=== PATIENT | male | born 1945 | race Caucasian/White ===

== ENCOUNTER 2016-10-27 08:29 | Day surgery (SDC) | payer MEDICARE ==
[~2016-10-27 08:29] MED LIST: ACETAMINOPHEN 1000MG/100 ML PREMIX IV ONE; CEFAZOLIN 1 Gram 50 ML IVPB ONE; FAMOTIDINE 20MG TABLET PO ONE; MECLIZINE 25 MG TABLET PO ONE; METOCLOPRAMIDE 10 MG TABLET PO ONE
[2016-10-27] MEDS ORDERED: OXYCODONE HCL/APAP 5MG/325MG TABLET PO ONE (14:07)
[2016-10-27] MEDS ORDERED: BUPIVACAINE 0.25% W/EPI MPF 30ML VIAL IVP ONE (14:07)
--- NOTE | 2016-10-27 14:23 | Operative Note ---
OPERATIVE REPORT DATE OF PROCEDURE: 10/27/2016. SURGEON: Michael Nichols D.O. REFERRING PHYSICIAN: Kenyon Shultz D.O. PREOPERATIVE DIAGNOSIS: REDUCIBLE RIGHT INGUINAL HERNIA. POSTOPERATIVE DIAGNOSIS: REDUCIBLE RIGHT INGUINAL HERNIA. PROCEDURE: Open right inguinal herniorrhaphy with mesh. INDICATIONS: The patient is a 71-year-old male who presented to the clinic with pain and bulging in his right inguinal region. He clearly had a reducible hernia on examination. We did discuss repair and the risks, benefits, and alternatives. The risks include bleeding, infection, acute and chronic pain, and recurrence. He understood this fully. Therefore consent was signed and questions were answered. DESCRIPTION OF PROCEDURE: He was taken to the operating room and was placed in the supine position. General anesthesia was administered per the Department of Anesthesia. The patient's right inguinal region was shaved of hair and prepped and draped in the usual fashion. At this time an oblique region was anesthetized with a total of 5.0 mL of 0.25% Sensorcaine with epinephrine. A 4.0 cm oblique incision was made. This was carried down through subcutaneous tissue through Brandy's layer to the aponeurosis of the external oblique. This was cleaned off. A angel was made with the scalpel blade and this was enlarged through the superficial inguinal ring with Metzenbaum scissors. Care was taken not to injure the underlying ilioinguinal nerve or spermatic cord. At this time superior and inferior flaps were developed and a [place] was placed on the spermatic cord. This was dissected free from the underlying transversalis fascia. The patient did have an attenuated floor and incarcerated fat at the level of the pubic tubercle through the floor. The cremasteric fibers were taken down. A small indirect hernia sac was also identified. High ligation of the indirect sac was noted. At this time the hernia sac just lateral to the pubic tubercle was amputated. The floor was imbricated with 2-0 Vicryl from the level of the pubic tubercle to the deep inguinal ring. At this time a right-sided ProGrip mesh was obtained. This was placed on the floor of the inguinal canal with excellent overlap of the pubic tubercle. Sutures went to the level of the pubic tubercle shelving portion of the inguinal ligament and the internal oblique aponeurosis. The mesh had been notched and did accompany the deep inguinal ring. The lateral triangle was protected with the lateral aspect of the mesh. At this time the aponeurosis was closed with a cord of 2-0 Vicryl, Brandy's layer was closed with 3-0 Vicryl, and the skin was closed with 4-0 Vicryl. He was taken to the recovery room in satisfactory condition. FINDINGS AT THE TIME OF SURGERY: [place] hernia where a small indirect hernia sac was noted as well as incarcerated fat just lateral to the pubic tubercle. Michael Nichols D.O. Date Time JOB NUMBER: [id number] cc: Grace Pathak
[2016-10-27] MEDS ORDERED: ONDANSETRON HCL IV 4 MG/2 ML VIAL IVP ONE (15:29)
[2016-10-27] MEDS ORDERED: LIDOCAINE 2% MDV (20MG/ML) 20ML VIAL IV ONE (15:29)
[2016-10-27] MEDS ORDERED: FENTANYL PF 100MCG/2ML VIAL IV ONE (15:29)
[2016-10-27] MEDS ORDERED: PROPOFOL 10 MG/ML VIAL IV ONE (15:29)
[2016-10-27] MEDS ORDERED: HYDRALAZINE 20MG/ML VIAL IV ONE (15:29)
[2016-10-27] MEDS ORDERED: MIDAZOLAM HCL 2MG/2ML VIAL IV ONE (15:29)
[2016-10-27] MEDS ORDERED: DEXAMETHASONE 4 MG/ML 1ML VIAL IVP ONE (15:29)
== END 2016-10-27 12:15 | disposition home or self-care (01) ==
LOC: SUR 08:29
PROVIDERS: ATTEND Surgery
DX: K40.90 Unilateral inguinal hernia, without obstruction or gangrene, not specified as recurrent (principal); I10 Essential (primary) hypertension; E78.00 Pure hypercholesterolemia, unspecified
CPT/HCPCS: 49505; 00830; J2405; J3010; J0690

== ENCOUNTER 2016-11-18 11:56 | Inpatient (IN) | payer MEDICARE ==
[2016-11-18 13:01] LABS: ANION GAP 8.7 (7-16); CARBON DIOXIDE 31.3 mmol/L (22-30); CREATININE 1.3 mg/dL (0.66-1.25)
--- NOTE | 2016-11-18 13:20 | Emergency Department Record ---
History of Present Illness - General Chief complaint: Pain Stated complaint: HIP PAIN Time Seen by Provider: 11/18/16 12:20 Source: Patient Mode of Arrival: Ambulatory Limitations: No limitations - History of Present Illness Initial comments: pt sent here for abnormal calcium. pt recently had pathological fx of hip by just stepping off a curb. dr england ordered labs and found abnormal calcium. pt also has had a marked wt loss. he recently stopped smoking MD Complaint: Extremity pain Onset/Timin -: Days(s) Location: Left, Other History of Same: No Severity scale (1-10): 1 Quality: Aching Improves with: Nothing Worsens with: Nothing Associated Symptoms: Denies other symptoms - Related Data Home Medications Medication Instructions Recorded Confirmed Last Taken Aclidinium [place] [Tudorza 400 mcg IH DAILY 11/18/16 11/18/16 Unknown Pressair] Amlodipine Besylate [Norvasc] 10 mg PO DAILY 11/18/16 11/18/16 Unknown Aspirin [Ecotrin] 81 mg PO DAILY 11/18/16 11/18/16 Unknown Atenolol [Tenormin] 50 mg PO DAILY 11/18/16 11/18/16 Unknown Atorvastatin Calcium [Lipitor] 10 mg PO DAILY 11/18/16 11/18/16 Unknown Cholecalciferol (Vitamin D3) 1,000 unit PO DAILY 11/18/16 11/18/16 Unknown [Vitamin D3] Dexlansoprazole [Dexilant] 60 mg PO DAILY 11/18/16 11/18/16 Unknown Fluticasone Propionate [Flonase] 2 spray EACH NARES DAILY 11/18/16 11/18/16 Unknown Loratadine 10 mg PO DAILY 11/18/16 11/18/16 Unknown Multivit-Min/FA/Lycopene/Lut 1 each PO DAILY 11/18/16 11/18/16 Unknown [Centrum Silver Tablet] Nitroglycerin 0.4 mg SL ASDIR 11/18/16 11/18/16 Unknown Oxycodone HCl/Acetaminophen 1 tab PO Q6H PRN 11/18/16 11/18/16 Unknown [Percocet 10mg/325mg] Saliva Substitution Combo No.9 473 ml MM DAILY 11/18/16 11/18/16 Unknown [Biotene] Tramadol HCl 50 mg PO Q6H 11/18/16 11/18/16 Unknown Trazodone HCl [Desyrel] 50 mg PO QHS 11/18/16 11/18/16 Unknown Allergies Allergy/AdvReac Type Severity Reaction Status Date / Time codeine Allergy Unknown HYPERSENSIT Unverified 07/28/14 18:14 IVITY Travel Screening - Travel/Exposure Within Last 30 Days Have you traveled within the last 30 days?: No Review of Systems Reviewed: No additional complaints except as noted below Constitutional: Reports: As per HPI. Denies: Chills, Fever, Malaise, Night sweats, Weakness, Weight change Eyes: Reports: As per HPI. Denies: Eye discharge, Eye pain, Photophobia, Vision change ENT: Reports: As per HPI. Denies: Congestion, Dental pain, Ear pain, Epistaxis , Hearing loss, Throat pain Respiratory: Reports: As per HPI. Denies: Cough, Dyspnea, Hemoptysis, Stridor, Wheezes Cardiovascular: Reports: As per HPI. Denies: Arrhythmia, Chest pain, Dyspnea on exertion, Edema, Murmurs, Orthopnea, Palpitations, Paroxysmal nocturnal dyspnea, Rheumatic Fever, Syncope Endocrine: Reports: As per HPI. Denies: Fatigue, Heat or cold intolerance, Polydipsia, Polyuria Gastrointestinal: Reports: As per HPI. Denies: Abdominal pain, Constipation, Diarrhea, Hematemesis, Hematochezia, Melena, Nausea, Vomiting Genitourinary: Reports: As per HPI. Denies: Dysuria, Frequency, Hematuria, Incontinence, Retention, Testicular pain, Testicular mass, Urgency Musculoskeletal: Reports: As per HPI. Denies: Arthralgia, Back pain, Gout, Joint swelling, Myalgia, Neck pain Skin: Reports: As per HPI. Denies: Bruising, Change in color, Change in hair/ nails, Lesions, Pruritus, Rash Neurological: Reports: As per HPI. Denies: Abnormal gait, Confusion, Headache, Numbness, Paresthesias, Seizure, Tingling, Tremors, Vertigo, Weakness Psychiatric: Reports: As per HPI. Denies: Anxiety, Auditory hallucinations, Depression, Homicidal thoughts, Suicidal thoughts, Visual hallucinations Hematological/Lymphatic: Reports: As per HPI. Denies: Anemia, Blood Clots, Easy bleeding, Easy bruising, Swollen glands Past Medical History - SOCIAL HISTORY Smoking Status: Former smoker Alcohol Use: None Drug Use: None - RESPIRATORY Hx Respiratory Disorders: No - CARDIOVASCULAR Hx Cardio Disorders: Yes Hx Cardiac Cath: Yes Hx Heart Attack: Yes Hx Hypertension: Yes Hx Vascular Disease: Yes Hx Coronary Stent: Yes (years ago) Comment:: aortic aneurysm repair. 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) Hx Weakness: Yes (generalized) - GI Hx GI Disorders: Yes Hx Abdominal Pain: Yes Hx Liver Disease: Yes (fatty liver disease) Hx Wt Loss/Wt Gain: Yes (losing weight unknown etiology) - Hx Genitourinary Disorders: Yes Hx Bladder Problem: Yes (frequent) - ENDOCRINE Hx Endocrine Disorders: No - MUSCULOSKELETAL Hx Musculoskeletal Disorders: Yes Hx Arthritis: Yes Hx Back Injury: Yes - PSYCH Hx Psych Problems: No - HEMATOLOGY/ONCOLOGY Hx Hematology/Oncology Disorders: No Hx Blood Transfusions: No Family Medical History Any Significant Family History?: Yes Hx Heart Disease: Father Physical Exam - General General Appearance: Alert, Oriented x3, Cooperative, Mild distress, Other ( cachectic) - Head Head exam: Normal inspection - Eye Eye exam: Normal appearance, PERRL, EOMI Pupils: Normal accommodation - ENT ENT exam: Normal exam, Mucous membranes moist, Normal external ear exam, Normal orophraynx Ear exam: Normal external inspection. negative: External canal tenderness Nasal Exam: Normal inspection. negative: Discharge, Sinus tenderness Mouth exam: Normal external inspection, Tongue normal Teeth exam: Normal inspection. negative: Dental caries Throat exam: Normal inspection. negative: Tonsillar erythema, Tonsillar exudate - Neck Neck exam: Normal inspection, Full ROM. negative: Tenderness - Respiratory Respiratory exam: Normal lung sounds bilaterally. negative: Respiratory distress - Cardiovascular Cardiovascular Exam: Regular rate, Normal rhythm, Normal heart sounds - GI/Abdominal GI/Abdominal exam: Soft, Normal bowel sounds. negative: Tenderness - Rectal Rectal exam: Deferred - exam: Deferred - Extremities Extremities exam: Normal capillary refill, Tenderness. negative: Normal inspection, Full ROM - Back Back exam: Reports: Normal inspection, Full ROM. Denies: Muscle spasm, Rash noted, Tenderness - Neurological Neurological exam: Alert, CN II-XII intact, Normal gait, Oriented X3 - Psychiatric Psychiatric exam: Normal affect, Normal mood - Skin Skin exam: Dry, Intact, Normal color, Warm Course Vital Signs 11/18/16 12:05 Temperature 97.4 F L Pulse Rate 62 Respiratory 20 Rate Blood Pressure 170/86 Pulse Ox 96 Medical Decision Making - Lab Data Result diagrams: 11/18/16 12:35 11/18/16 12:35 Lab Results 11/18/16 Range/Units 12:35 Sodium 129 L (136-145) mmol/L Potassium 4.5 (3.5-5.1) mmol/L Chloride 89 L (98-107) mmol/L Carbon Dioxide 31.3 H (22-30) mmol/L Anion Gap 8.7 (7-16) BUN 22 H (9-20) mg/dL Creatinine 1.3 H (0.66-1.25) mg/dL Estimated GFR 58 ml/min Random Glucose 90 (70-110) mg/dL Calcium 13.0 H (8.5-10.1) mg/dL Disposition Disposition: Admit Clinical Impression: Hypercalcemia Pneumonia involving right lung Qualifiers: Pneumonia type: due to unspecified organism Lung location: upper lobe of lung Qualified Code(s): J18.1 - Lobar pneumonia, unspecified organism Disposition: Still a Patient at [facility] Decision to Admit: Admit from ER Decision to Admit Date: 11/18/16 Decision to Admit Time: 17:00 Forms: Patient Portal Access
[2016-11-18] MEDS ORDERED: 0.9 % SODIUM CHLORIDE 1,000 ML BAG IV ONE (14:26)
[2016-11-18] MEDS ORDERED: CEFTRIAXONE SODIUM 1 GM in 0.9 % SODIUM CHLORIDE 100ML 100 ML IVPB ONE (15:17)
[2016-11-18] MEDS ORDERED: FUROSEMIDE IV 20MG/2ML VIAL IVP ONE (15:23)
[2016-11-18 15:31] LABS: BASO % 0.7 % (0-6); GRAN % 68.3 % (47-80); HEMATOCRIT 37.1 % (42.0-52.0); HEMOGLOBIN 12.7 gm/dl (14.0-18.0); LYMPH % 14.8 % (16-45); MEAN CELL VOLUME 98.1 fl (81-97); MEAN CORPUSCULAR HGB CONC 34.2 g/dl (32-36); MEAN PLATELET VOLUME 9.2 fl (7.4-10.4); MONO % 13.2 % (0-9); PLATELET COUNT 219 K/uL (130-400); RED BLOOD COUNT 3.78 M/uL (4.40-5.70)
[2016-11-18 15:32] LABS: MEAN CORPUSCULAR HEMOGLOBIN 33.5 pg (27-33)
[2016-11-18] MEDS ORDERED: AZITHROMYCIN 500 MG in 0.9 % SODIUM CHLORIDE 250ML 250 ML IVPB ONE (16:42)
[2016-11-18] MEDS ORDERED: AZITHROMYCIN 500 MG TABLET PO ONE (16:45)
[2016-11-18] MEDS ORDERED: ACETAMINOPHEN 500 MG TABLET PO PRN (17:37)
[2016-11-18] MEDS ORDERED: NITROGLYCERIN 0.4MG SL TABLET #25 BTL SL PRN (17:37)
[2016-11-18] MEDS ORDERED: CEFTRIAXONE SODIUM 1 GM in 0.9 % SODIUM CHLORIDE 100ML 100 ML IVPB SCH (17:37)
[2016-11-18] MEDS ORDERED: OXYCODONE/APAP 10MG-325MG TABLET PO PRN (17:37)
[2016-11-18] MEDS ORDERED: TRAMADOL HCL 50 MG TABLET PO SCH (17:37)
[2016-11-18] MEDS ORDERED: 0.9 % SODIUM CHLORIDE 1000ML 1,000 ML IV PRN (18:33)
[2016-11-18] MEDS: TRAMADOL HCL 50 MG TABLET PO PRN (18:45)
[2016-11-18] MEDS: ATORVASTATIN 20 MG TABLET PO SCH (21:09)
[2016-11-18] MEDS ORDERED: TRAZODONE 50 MG TABLET PO SCH (22:00)
[2016-11-19 02:57] LABS: BASO % 0.9 % (0-6); EOS % 3.5 % (0-6); HEMATOCRIT 42.3 % (42.0-52.0); HEMOGLOBIN 14.7 gm/dl (14.0-18.0); LYMPH % 18.3 % (16-45); MEAN CELL VOLUME 96.1 fl (81-97); MEAN CORPUSCULAR HEMOGLOBIN 33.4 pg (27-33); MEAN CORPUSCULAR HGB CONC 34.8 g/dl (32-36); MEAN PLATELET VOLUME 9.4 fl (7.4-10.4); MONO % 11.3 % (0-9); PLATELET COUNT 246 K/uL (130-400)
--- NOTE | 2016-11-19 06:06 | History & Physical ---
History of Present Illness - Date of Service Date of Service for History & Physical: 11/19/16 - History of Present Illness Admitting Diagnosis: pneumonia. hypercalcemia History of Present Illness: 71 yo male admitted for RUL pneumonia and elevated calcium level. PMHx consists of HTN, high cholesterol, seasonal allergies, fatty liver, [place] in 2001 ( s/p two stents), COPD, previous smoker (1ppd x 59 years, quit 4 months ago). Patient recently experience pathological fracture of iliac spine. Patient states he was stepping up to go into a building and felt something "crack." Patient's PCP, ordered imaging and labs. Left hip xray revealed anterior displaced fracture of left anterior iliac spine, though no acute left hip fracture. Patient's calcium also noted to be extremely elevated. He was then encouraged to go to the emergency room for further work up. Upon presentation to the ER, VSS, aside from elevated BP of 170/86. afebrile. Hgb 12.7, hct 37.1, plt 219, sodium 129, potassium 4.5, chloride 89, CO2 31.3, BUN 22, Cr 1.3, glucose 90, GFR 58, calcium 13.0, magnesium 1.5, AST 63, LAT 26 , Alk phos 91, BNP 2000, CXR: emphysema, RUL opasity, suggests f/up for resolution. Patient started on IVF's, Rocephin and Azithromycin for CAP and admitted for further medical management. Patient states he's been feeling more weak/fatigue over the past few months. Him and his significant other have noted a 40-50 # weight loss over the past 6 months. He admits to a chronic productive cough that's unchanged. He contributed this to his long smoking history. He denies any hemoptysis, SOB, CP , heart palpations, fever, chills, lightheadedness, headache, N/V, change in bowel habits, blood in stool, abdominal pain or skin changes. He states he eats twice a day though notes he's had a decreased appetite over the past few weeks. No recent medication changes, recent travel or sick contacts. Lives here in [place] with his significant other. retired. PCP: Dr. Shultz 11/19/16: Patient lying in bed comfortably with significant other at bedside. Recently returned from CT scan. States he feels very fatigue and weak. He's anxious to get home though understands that he needs medical treatment. Normal urinary output. Able to ambulate to the bathroom though states he feels too weak to. Feels constipated since starting on Tramadol for hip/pelvic pain. No appetite to eat breakfast. No additional concerns at this time. Travel Screening - Travel/Exposure Within Last 30 Days Have you traveled within the last 30 days?: No Review of Systems Constitutional: Reports: As per HPI. Denies: Chills, Fever, Malaise, Night sweats, Weakness, Weight change Eyes: Reports: As per HPI. Denies: Eye discharge, Eye pain, Photophobia, Vision change ENT: Reports: As per HPI. Denies: Congestion, Dental pain, Ear pain, Epistaxis , Hearing loss, Throat pain Respiratory: Reports: As per HPI. Denies: Cough, Dyspnea, Hemoptysis, Stridor, Wheezes Cardiovascular: Reports: As per HPI. Denies: Arrhythmia, Chest pain, Dyspnea on exertion, Edema, Murmurs, Orthopnea, Palpitations, Paroxysmal nocturnal dyspnea, Rheumatic Fever, Syncope Endocrine: Reports: As per HPI. Denies: Fatigue, Heat or cold intolerance, Polydipsia, Polyuria Gastrointestinal: Reports: As per HPI. Denies: Abdominal pain, Constipation, Diarrhea, Hematemesis, Hematochezia, Melena, Nausea, Vomiting Genitourinary: Reports: As per HPI. Denies: Dysuria, Frequency, Hematuria, Incontinence, Retention, Testicular pain, Testicular mass, Urgency Musculoskeletal: Reports: As per HPI. Denies: Arthralgia, Back pain, Gout, Joint swelling, Myalgia, Neck pain Skin: Reports: As per HPI. Denies: Bruising, Change in color, Change in hair/ nails, Lesions, Pruritus, Rash Neurological: Reports: As per HPI. Denies: Abnormal gait, Confusion, Headache, Numbness, Paresthesias, Seizure, Tingling, Tremors, Vertigo, Weakness Psychiatric: Reports: As per HPI. Denies: Anxiety, Auditory hallucinations, Depression, Homicidal thoughts, Suicidal thoughts, Visual hallucinations Hematological/Lymphatic: Reports: As per HPI. Denies: Anemia, Blood Clots, Easy bleeding, Easy bruising, Swollen glands Past Medical History - SOCIAL HISTORY Smoking Status: Former smoker - RESPIRATORY Hx Respiratory Disorders: No - CARDIOVASCULAR Hx Cardio Disorders: Yes Hx Cardiac Cath: Yes Hx Heart Attack: Yes Hx Hypertension: Yes Hx Vascular Disease: Yes Hx Coronary Stent: Yes (years ago) Comment:: aortic aneurysm repair. 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) Hx Weakness: Yes (generalized) - GI Hx GI Disorders: Yes Hx Abdominal Pain: Yes Hx Liver Disease: Yes (fatty liver disease) Hx Wt Loss/Wt Gain: Yes (losing weight unknown etiology) - Hx Genitourinary Disorders: Yes Hx Bladder Problem: Yes (frequent) - ENDOCRINE Hx Endocrine Disorders: No Hx Diabetes: No Hx Thyroid Disease: No - MUSCULOSKELETAL Hx Musculoskeletal Disorders: Yes Hx Arthritis: Yes Hx Back Injury: Yes - PSYCH Hx Psych Problems: No - HEMATOLOGY/ONCOLOGY Hx Hematology/Oncology Disorders: No Hx Blood Transfusions: No Family Medical History Any Significant Family History?: Yes Hx Heart Disease: Father H&P Meds/Allergies - Allergies Allergies: Allergies Allergy/AdvReac Type Severity Reaction Status Date / Time codeine Allergy Unknown HYPERSENSIT Unverified 07/28/14 18:14 IVITY - Home Medications Home Medications Medication Instructions Recorded Confirmed Last Taken Aclidinium [place] [Tudorza 400 mcg IH DAILY 11/18/16 11/18/16 Unknown Pressair] Amlodipine Besylate [Norvasc] 10 mg PO DAILY 11/18/16 11/18/16 Unknown Aspirin [Ecotrin] 81 mg PO DAILY 11/18/16 11/18/16 Unknown Atenolol [Tenormin] 50 mg PO DAILY 11/18/16 11/18/16 Unknown Atorvastatin Calcium [Lipitor] 10 mg PO DAILY 11/18/16 11/18/16 Unknown Cholecalciferol (Vitamin D3) 1,000 unit PO DAILY 11/18/16 11/18/16 Unknown [Vitamin D3] Fluticasone Propionate [Flonase] 2 spray EACH NARES DAILY 11/18/16 11/18/16 Unknown Loratadine 10 mg PO DAILY 11/18/16 11/18/16 Unknown Multivit-Min/FA/Lycopene/Lut 1 each PO DAILY 11/18/16 11/18/16 Unknown [Centrum Silver Tablet] Nitroglycerin 0.4 mg SL ASDIR 11/18/16 11/18/16 Unknown Oxycodone HCl/Acetaminophen 1 tab PO Q6H PRN 11/18/16 11/18/16 Unknown [Percocet 10mg/325mg] Saliva Substitution Combo No.9 473 ml MM DAILY 11/18/16 11/18/16 Unknown [Biotene] Tramadol HCl 2 tab PO QHS 11/18/16 11/18/16 Unknown - Active Medications Active Medications: Current Medications Acetaminophen (Tylenol 500mg Tab) 1,000 mg PO Q6H PRN PRN Reason: PAIN/TEMP Amlodipine Besylate (Norvasc) 10 mg PO DAILY [facility] Aspirin (Ecotrin (Ec)) 81 mg PO DAILY [facility] Atenolol (Tenormin) 50 mg PO DAILY [facility] Atorvastatin Calcium (Lipitor) 20 mg PO QHS [facility] Last Admin: 11/18/16 21:09 Dose: 20 mg Azithromycin (Zithromax) 500 mg PO DAILY [facility] Fluticasone Propionate (Flonase) gm NA DAILY [facility] Ceftriaxone Sodium 1 gm/ (Sodium Chloride) 100 mls @ 100 mls/hr IVPB Q24H [facility] Stop: 11/23/16 17:38 Last Admin: 11/18/16 18:44 Dose: Not Given Sodium Chloride () 1,000 mls @ 30 mls/hr IV .Q24H PRN PRN Reason: LARGE VOLUME IV Nitroglycerin (Nitrostat 0.4mg) 0.4 mg SL ASDIR [facility] Oxycodone/Acetaminophen (Percocet 10-325 Mg Tablet) each PO Q6H PRN PRN Reason: Pain - Moderate (5-7) Tramadol HCl (Ultram) 100 mg PO QHS PRN PRN Reason: Pain - Moderate (5-7) Last Admin: 11/18/16 18:45 Dose: 100 mg Vitamin D (Vitamin D3) 1,000 unit PO DAILY [facility] Physical Exam - Vital Signs Vital Signs: Vital Signs - Last 24 Hrs Temp Pulse Resp BP Pulse Ox 11/19/16 01:37 98.1 F 60 16 187/97 100 11/18/16 18:54 16 11/18/16 17:37 99.0 F 59 L 18 192/91 94 L - General General Appearance: Alert, Oriented x3, Cooperative, No acute distress, Other ( cachectic) Limitations: No limitations - Head Head exam: Normal inspection - Eye Eye exam: Normal appearance, PERRL, EOMI Pupils: Normal accommodation - ENT ENT exam: Normal exam, Mucous membranes moist, Normal external ear exam, Normal orophraynx Ear exam: Normal external inspection. negative: External canal tenderness Nasal Exam: Normal inspection. negative: Discharge, Sinus tenderness Mouth exam: Normal external inspection, Tongue normal Teeth exam: Normal inspection. negative: Dental caries Throat exam: Normal inspection. negative: Tonsillar erythema, Tonsillar exudate - Neck Neck exam: Normal inspection, Full ROM. negative: Tenderness - Respiratory Respiratory exam: Normal lung sounds bilaterally. negative: Respiratory distress - Cardiovascular Cardiovascular Exam: Regular rate, Normal rhythm, Normal heart sounds - GI/Abdominal GI/Abdominal exam: Soft, Normal bowel sounds. negative: Tenderness - Rectal Rectal exam: Deferred - exam: Deferred - Extremities Extremities exam: Normal capillary refill. negative: Normal inspection, Full ROM, Pedal edema, Tenderness - Back Back exam: Reports: Normal inspection, Full ROM. Denies: Muscle spasm, Rash noted, Tenderness - Neurological Neurological exam: Alert, CN II-XII intact, Normal gait, Oriented X3 - Psychiatric Psychiatric exam: Normal affect, Normal mood - Skin Skin exam: Dry, Intact, Normal color, Warm Results - Labs Result Diagrams: 11/19/16 02:30 11/19/16 06:24 Labs Last 24 Hours: Laboratory Results - last 24 hr 11/19/16 11/19/16 02:30 02:30 WBC 8.0 RBC 4.40 Hgb 14.7 Hct 42.3 MCV 96.1 MCH 33.4 H MCHC 34.8 RDW 14.0 Plt Count 246 MPV 9.4 Gran % 66.0 Lymphocytes % 18.3 Monocytes % 11.3 H Eosinophils % 3.5 Basophils % 0.9 Sodium 133 L Potassium 3.6 Chloride 91 L Carbon Dioxide 27.0 Anion Gap 15.0 BUN 23 H Creatinine 1.3 H Estimated GFR 58 Random Glucose 74 Calcium 13.4 H* VTE H&P Assessment - Risk for VTE Risk for VTE: Yes Risk Level: Moderate Risk Assessment Date: 11/19/16 Risk Assessment Time: 11:00 VTE Orders Placed or Will Be Placed: Yes Plan - Inpatient Certification Inpatient Certification: Admit to inpatient care: Based on my medical assessment, after consideration of patient's risk factors (age, co-morbidities and patient presenting symptoms and acuity), I expect that this patient will remain in the hospital greater than or equal to two midnights and that the services needed warrant inpatient care because: Patient Risk Factors: [] Estimated length of stay: [] The patient may reasonably be expected to be discharged or transferred to a hospital within 96 hours after admission to [facility]. Services needed: [] Post hospital care (if known): [] I certify that my determination is in accordance with my understanding of Medicare requirements for reasonable and necessary inpatient services. - Detailed Diagnosis and Plan (1) Pneumonia involving right lung Current Visit: Yes Status: Acute Qualifiers: Pneumonia type: due to unspecified organism Lung location: upper lobe of lung Qualified Code(s): J18.1 - Lobar pneumonia, unspecified organism Base Code: J18.9 - PNEUMONIA, UNSPECIFIED ORGANISM Comment: 11/19/16: -CXR: RUL opacity -Rocephin 1 gm q 12 hours -Azithromycin PO 500 mg daily x 5 days -wbc normal. afebrile -monitor VS's and oxygen saturation daily -CT of chest ordered to further evaluate -legionella ordered & pending. -congratulated patient on smoking cessation. (2) Hypercalcemia Current Visit: Yes Status: Acute Base Code: E83.52 - HYPERCALCEMIA Comment: 11/19/16: elevated PTH vs. elevated Vit D vs. Bone breakdown vs. renal etiology vs. other? -TSH normal - await PTH, Vit D, urine for bense griffith protein - noting 50+ # unintentional weight loss, malignant etiology r/o w/ chest CT. (3) Acute kidney failure Current Visit: Yes Status: Acute Base Code: N17.9 - ACUTE KIDNEY FAILURE , UNSPECIFIED Comment: 11/19/16: volume depletion vs. kidney injury vs. other? -BNP elevated at 1999 -gentle IV hydration - hold diuretic therapy for now -correct electrolytes (4) DVT prophylaxis Current Visit: Yes Status: Acute Base Code: [id number] - Comment: 11/19/16: moderate risk: age, decreased mobility. lovenox 40 mg sq daily (5) Full code status Current Visit: Yes Status: Acute Base Code: Z78.9 - OTHER SPECIFIED HEALTH STATUS Comment: 11/19/16: patient is full code
[2016-11-19 06:33] LABS: ALB/GLOB RATIO 1.1 (1.1-1.8); ALBUMIN 4.5 gm/dL (3.5-5.0); ANION GAP 16.2 (7-16); BILIRUBIN,TOTAL 0.83 mg/dL (0.2-1.3); CARBON DIOXIDE 23.8 mmol/L (22-30); CREATININE 1.4 mg/dL (0.66-1.25); TOTAL PROTEIN 8.7 gm/dL (6.3-8.2)
[2016-11-19] MEDS ORDERED: DEXLANSOPRAZOLE 60 MG PO SCH (10:00)
[2016-11-19] MEDS ORDERED: Non-Formulary MISC (Atorvastatin Calcium [Lipitor] 10 MG) PO SCH (10:00)
[2016-11-19] MEDS ORDERED: CHOLECALCIFEROL 1000 UNIT PO SCH (10:00)
[2016-11-19] MEDS ORDERED: Non-Formulary MISC (Amlodipine Besylate [Norvasc] 10 MG) PO SCH (10:00)
[2016-11-19] MEDS: CHOLECALCIFEROL 1,000 UNIT TABLET PO SCH (10:55)
[2016-11-19] MEDS: AZITHROMYCIN 500 MG TABLET PO SCH (10:55)
[2016-11-19] MEDS: CEFTRIAXONE SODIUM 1 GM in 0.9 % SODIUM CHLORIDE 100ML 100 ML IVPB SCH ×2 (10:55→22:00)
[2016-11-19] MEDS: AMLODIPINE BESYLATE 5MG TAB PO SCH (10:55)
[2016-11-19] MEDS: ASPIRIN 81 MG TABEC PO SCH (10:55)
[2016-11-19] MEDS: ATENOLOL 50 MG TABLET PO SCH (10:55)
[2016-11-19] MEDS: FLUTICASONE PROPIONATE 50MCG NASAL 16 GM BTL SCH (11:07)
[2016-11-19] MEDS: BISACODYL 5 MG TABLET PO SCH ×3 (12:28→23:10)
[2016-11-19] MEDS: ATORVASTATIN 20 MG TABLET PO SCH ×2 (20:24→23:10)
[2016-11-19] MEDS: TRAMADOL HCL 50 MG TABLET PO PRN (20:24)
[2016-11-20 06:09] LABS: BASO % 0.4 % (0-6); EOS % 2.1 % (0-6); GRAN % 71.2 % (47-80); HEMATOCRIT 43.2 % (42.0-52.0); LYMPH % 14.1 % (16-45); MEAN CELL VOLUME 94.9 fl (81-97); MEAN CORPUSCULAR HGB CONC 34.7 g/dl (32-36); MEAN PLATELET VOLUME 8.8 fl (7.4-10.4); MONO % 12.2 % (0-9); PLATELET COUNT 264 K/uL (130-400); RED BLOOD COUNT 4.55 M/uL (4.40-5.70); WHITE BLOOD COUNT W/O DIFF 11.1 K/uL (4.2-12.2)
[2016-11-20 06:20] LABS: ANION GAP 16.5 (7-16); BLOOD UREA NITROGEN 20 mg/dL (9-20); CARBON DIOXIDE 29.5 mmol/L (22-30); CREATININE 1.2 mg/dL (0.66-1.25); EST GLOMERULAR FILTRATION RATE > 60 ml/min; GLUCOSE,RANDOM 113 mg/dL (70-110)
--- NOTE | 2016-11-20 07:15 | RADIOLOGY REPORT ---
EXAM: CHEST, TWO VIEWS HISTORY: FALL. TECHNIQUE: Frontal and lateral views of the chest were obtained. Comparison: None. FINDINGS: The heart size is normal. Atheromatous change thoracic aorta. Osteopenia. Underlying emphysema. Air space opacity in the right upper lobe which may relate to pneumonia. Recommend follow-up until resolution. No pneumothorax. IMPRESSION: EMPHYSEMA. SUSPECT RIGHT UPPER LOBE PNEUMONIA. RECOMMEND FOLLOW-UP UNTIL RESOLUTION. JOB NUMBER: [id number] MTDD
--- NOTE | 2016-11-20 07:24 | CT SCAN REPORT ---
EXAM: CT OF THE CHEST HISTORY: PNEUMONIA. TECHNIQUE: CT of the chest was performed following the IV administration of 100 ml of Omnipaque 300 contrast. Comparison: Chest x-ray from 11/18/16. FINDINGS: The mediastinal vasculature enhances normally. There are several nonspecific, nonenlarged as well as enlarged mediastinal lymph nodes in the superior mediastinum, right paratracheal region, pretracheal region, prevascular space, AP window, and subcarinal region. The largest node is in the subcarinal region measuring 1.5 x 1.9 cm. Poorly defined right hilar adenopathy is also noted, measuring 1.6 x 1.7 cm. There is a moderate sized pericardial effusion. Limited evaluation of the upper abdomen is unremarkable. The osseous structures are grossly intact. There is no pneumothorax. There is severe emphysematous changes in the upper loges and apices. There is a spiculated nodular density in the right lung apex measuring 3.3 x 1.7 cm. Adjacent areas of nodular/reticulonodular change are also present. A somewhat poorly defined air space opacity is also noted in the right perihilar region. Multiple other subcentimeter pulmonary nodules in the right upper lobe are present. No effusion. IMPRESSION: 1. SEVERE EMPHYSEMATOUS CHANGES IN THE UPPER LOBES/APICES. SPICULATED 3.3 X 1.7 CM NODULAR FOCUS IN THE RIGHT APEX. FURTHER ASSESSMENT WITH PET CT MAY BE OF BENEFIT. 2. A SOMEWHAT NODULAR AIR SPACE OPACITY IN THE RIGHT PERIHILAR REGION. OTHER NODULAR/RETICULONODULAR CHANGES ARE PRESENT. WHILE THESE FINDINGS MAY RELATE TO AN ACUTE PNEUMONIA, AT MINIMUM SHORT TERM FOLLOW-UP FOLLOWING APPROPRIATE THERAPY IN SIX TO EIGHT WEEKS IS RECOMMENDED. 3. MEDIASTINAL AND RIGHT HILAR ADENOPATHY, ALSO NONSPECIFIC. JOB NUMBER: [id number] MTDD
[2016-11-20] MEDS: AMLODIPINE BESYLATE 5MG TAB PO SCH (09:13)
[2016-11-20] MEDS: CEFTRIAXONE SODIUM 1 GM in 0.9 % SODIUM CHLORIDE 100ML 100 ML IVPB SCH (09:13)
[2016-11-20] MEDS: BISACODYL 5 MG TABLET PO SCH (09:14)
[2016-11-20] MEDS: CHOLECALCIFEROL 1,000 UNIT TABLET PO SCH (09:14)
[2016-11-20] MEDS: ATENOLOL 50 MG TABLET PO SCH (09:14)
[2016-11-20] MEDS: AZITHROMYCIN 500 MG TABLET PO SCH (09:14)
[2016-11-20] MEDS: ASPIRIN 81 MG TABEC PO SCH (09:15)
[2016-11-20] MEDS: FLUTICASONE PROPIONATE 50MCG NASAL 16 GM BTL SCH (09:16)
--- NOTE | 2016-11-20 09:33 | Discharge Summary ---
Providers Discharge Summary Date: 11/20/16 Date of admission: 11/18/16 17:19 Expected Date of Discharge: 11/20/16 Attending physician: ALANIS SALCEDO Primary care physician: JULIO SHULTZ D.O. Consults: Consult Orders 11/19/16 13:21 Consult NOW Consulting Provider: ROMAN POWELL Physician Instructions: consult and treat Reason For Exam: hip fx Physical Exam - Vital Signs Vital Signs: Vital Signs - Last 24 Hrs Temp Pulse Resp BP Pulse Ox 11/20/16 09:00 97.8 F 83 20 174/104 98 11/20/16 01:00 98.5 F 73 21 161/92 100 11/19/16 16:44 98.8 F 57 L 12 119/59 97 - General General Appearance: Alert, Oriented x3, Cooperative, No acute distress, Other ( cachectic) Limitations: No limitations - Head Head exam: Normal inspection - Eye Eye exam: Normal appearance, PERRL, EOMI Pupils: Normal accommodation - ENT ENT exam: Normal exam, Mucous membranes moist, Normal external ear exam, Normal orophraynx Ear exam: Normal external inspection. negative: External canal tenderness Nasal Exam: Normal inspection. negative: Discharge, Sinus tenderness Mouth exam: Normal external inspection, Tongue normal Teeth exam: Normal inspection. negative: Dental caries Throat exam: Normal inspection. negative: Tonsillar erythema, Tonsillar exudate - Neck Neck exam: Normal inspection, Full ROM. negative: Tenderness - Respiratory Respiratory exam: Normal lung sounds bilaterally. negative: Respiratory distress - Cardiovascular Cardiovascular Exam: Regular rate, Normal rhythm, Normal heart sounds - GI/Abdominal GI/Abdominal exam: Soft, Normal bowel sounds. negative: Tenderness - Rectal Rectal exam: Deferred - exam: Deferred - Extremities Extremities exam: Normal capillary refill. negative: Normal inspection, Full ROM, Pedal edema, Tenderness - Back Back exam: Reports: Normal inspection, Full ROM. Denies: Muscle spasm, Rash noted, Tenderness - Neurological Neurological exam: Alert, CN II-XII intact, Normal gait, Oriented X3 - Psychiatric Psychiatric exam: Normal affect, Normal mood - Skin Skin exam: Dry, Intact, Normal color, Warm Hospitalization - Hospitalization Admission Diagnosis: pneumonia. hypercalcemia - Problem List/Discharge Diagnosis (1) Pneumonia involving right lung Current Visit: Yes Status: Acute Discharge Diagnosis: Pneumonia type: due to unspecified organism Lung location: upper lobe of lung Qualified Code(s): J18.1 - Lobar pneumonia, unspecified organism Base Code: J18.9 - PNEUMONIA, UNSPECIFIED ORGANISM Comment: 11/20/16: -CXR and Chest CT: RUL opacity. PET scan vs. repeat imaging in 6-8 weeks recommended. -[facility] scan [facility] at [facility] on 11/26 @ 745am. -Will complete outpatient CAP treatment (Azithromycin PO 500 mg) -wbc normal. afebrile -CT of chest ordered to further evaluate -legionella negative -congratulated patient on smoking cessation. (2) Hypercalcemia Current Visit: Yes Status: Acute Base Code: E83.52 - HYPERCALCEMIA Comment: 11/20/16: elevated PTH vs. elevated Vit D vs. Bone breakdown vs. renal etiology vs. other? -TSH normal - await PTH, Vit D, urine for bense griffith protein - noting 50+ # unintentional weight loss, malignant etiology - PET scan has been ordered. - patient will follow up with Dr. Shultz November 24 @ 1030 am to discuss lab results and further recommendations. Patient agree's to return in the meantime re any new or worsening symptoms. (3) Acute kidney failure Current Visit: Yes Status: Acute Base Code: N17.9 - ACUTE KIDNEY FAILURE , UNSPECIFIED Comment: 11/20/16: I suspect this was related to dehydration. BUN/Cr have normalized. (4) Full code status Current Visit: Yes Status: Acute Base Code: Z78.9 - OTHER SPECIFIED HEALTH STATUS Comment: 11/20/16: patient remained full code - Hospitalization Course Disposition: Home, Self-Care Hospital Course: 71 yo male admitted for RUL pneumonia and elevated calcium level. PMHx consists of HTN, high cholesterol, seasonal allergies, fatty liver, [place] in 2001 ( s/p two stents), COPD, previous smoker (1ppd x 59 years, quit 4 months ago). Patient recently experience pathological fracture of iliac spine. Patient states he was stepping up to go into a building and felt something "crack." Patient's PCP, ordered imaging and labs. Left hip xray revealed anterior displaced fracture of left anterior iliac spine, though no acute left hip fracture. Patient's calcium also noted to be extremely elevated. He was then encouraged to go to the emergency room for further work up. Upon presentation to the ER, VSS, aside from elevated BP of 170/86. afebrile. Hgb 12.7, hct 37.1, plt 219, sodium 129, potassium 4.5, chloride 89, CO2 31.3, BUN 22, Cr 1.3, glucose 90, GFR 58, calcium 13.0, magnesium 1.5, AST 63, LAT 26 , Alk phos 91, BNP 2000, CXR: emphysema, RUL opasity, suggests f/up for resolution. Patient started on IVF's, Rocephin and Azithromycin for CAP and admitted for further medical management. Patient states he's been feeling more weak/fatigue over the past few months. Him and his significant other have noted a 40-50 # weight loss over the past 6 months. He admits to a chronic productive cough that's unchanged. He contributed this to his long smoking history. He denies any hemoptysis, SOB, CP , heart palpations, fever, chills, lightheadedness, headache, N/V, change in bowel habits, blood in stool, abdominal pain or skin changes. He states he eats twice a day though notes he's had a decreased appetite over the past few weeks. No recent medication changes, recent travel or sick contacts. Lives here in [place] with his significant other. retired. PCP: Dr. Shultz 11/19/16: Patient lying in bed comfortably with significant other at bedside. Recently returned from CT scan. States he feels very fatigue and weak. He's anxious to get home though understands that he needs medical treatment. Normal urinary output. Able to ambulate to the bathroom though states he feels too weak to. Feels constipated since starting on Tramadol for hip/pelvic pain. No appetite to eat breakfast. No additional concerns at this time. 11/20/16: Patient sitting up in chair. Adamant on going home today. Patient tolerated breakfast. Ambulating the room. Passing gas, no stool. Cough chronic, unchanged. no fever, chills, n/v, abdominal pain, MSK pain, headache, lightheadedness, or chest pain. Weakness is chronic and unchanged. Patient has good support system at home. Procedures: Imaging and X-Rays 11/19/16 08:00 CHEST W CONTRAST [CT] Stat Abnormal Labs: Abnormal Lab Results 11/19/16 11/19/16 11/19/16 Range/Units 02:30 06:24 06:30 MCH 33.4 H (27-33) pg Lymphocytes % (16-45) % Monocytes % 11.3 H (0-9) % Sodium 133 L (136-145) mmol/L Chloride 93 L (98-107) mmol/L Anion Gap 16.2 H (7-16) BUN 23 H (9-20) mg/dL Creatinine 1.4 H (0.66-1.25) mg/dL Random Glucose (70-110) mg/dL Calcium 13.6 H* (8.5-10.1) mg/dL AST 132 H (17-59) U/L Total Protein 8.7 H (6.3-8.2) gm/dL PTH Intact 1.5 L (14.0-55.7) pg/mL 11/20/16 11/20/16 Range/Units 06:00 06:00 MCH (27-33) pg Lymphocytes % 14.1 L (16-45) % Monocytes % 12.2 H (0-9) % Sodium (136-145) mmol/L Chloride 92 L (98-107) mmol/L Anion Gap 16.5 H (7-16) BUN (9-20) mg/dL Creatinine (0.66-1.25) mg/dL Random Glucose 113 H (70-110) mg/dL Calcium 13.5 H* (8.5-10.1) mg/dL AST (17-59) U/L Total Protein (6.3-8.2) gm/dL PTH Intact (14.0-55.7) pg/mL Condition at Discharge: (2) Stable Discharge Medications - Discharge Medications Prescriptions: Azithromycin [Zithromax] 500 mg PO DAILY #2 tab Home Medications: Ambulatory Orders Aclidinium [place] [Tudorza Pressair] 400 mcg IH DAILY 11/18/16 [Last Taken Unknown] Amlodipine Besylate [Norvasc] 10 mg PO DAILY 11/18/16 [Last Taken Unknown] Aspirin [Ecotrin] 81 mg PO DAILY 11/18/16 [Last Taken Unknown] Atenolol [Tenormin] 50 mg PO DAILY 11/18/16 [Last Taken Unknown] Atorvastatin Calcium [Lipitor] 10 mg PO DAILY 11/18/16 [Last Taken Unknown] Cholecalciferol (Vitamin D3) [Vitamin D3] 1,000 unit PO DAILY 11/18/16 [Last Taken Unknown] Fluticasone Propionate [Flonase] 2 spray EACH NARES DAILY 11/18/16 [Last Taken Unknown] Loratadine 10 mg PO DAILY 11/18/16 [Last Taken Unknown] Multivit-Min/FA/Lycopene/Lut [Centrum Silver Tablet] 1 each PO DAILY 11/18/16 [ Last Taken Unknown] Nitroglycerin 0.4 mg SL ASDIR 11/18/16 [Last Taken Unknown] Oxycodone HCl/Acetaminophen [Percocet 10mg/325mg] 1 tab PO Q6H PRN 11/18/16 [ Last Taken Unknown] Saliva Substitution Combo No.9 [Biotene] 473 ml MM DAILY 11/18/16 [Last Taken Unknown] Tramadol HCl 2 tab PO QHS 11/18/16 [Last Taken Unknown] Azithromycin [Zithromax] 500 mg PO DAILY #2 tab 11/20/16 [Last Taken Unknown] Discharge Plan - Discharge Instructions Activity at Discharge: Increase Activity as Tolerated Diet at Discharge: Regular Diet
[2016-11-20] MEDS ORDERED: ENOXAPARIN 40 MG/0.4 ML SYR SQ SCH (10:00)
== END 2016-11-20 10:41 | disposition home or self-care (01) | DRG 195 ==
LOC: ER 11:56 → MEDSURG 17:19
PROVIDERS: ADMIT Family Medicine; ATTEND Family Medicine
DX: J18.9 Pneumonia, unspecified organism (principal); J18.1 Lobar pneumonia, unspecified organism; E83.52 Hypercalcemia; I10 Essential (primary) hypertension; E78.00 Pure hypercholesterolemia, unspecified; K76.0 Fatty (change of) liver, not elsewhere classified; N17.9 Acute kidney failure, unspecified; J44.9 Chronic obstructive pulmonary disease, unspecified; M84.454A Pathological fracture, pelvis, initial encounter for fracture; Z86.73 Personal history of transient ischemic attack (TIA), and cerebral infarction without residual deficits; R53.1 Weakness; Z78.9 Other specified health status; R91.8 Other nonspecific abnormal finding of lung field
CPT/HCPCS: 71020; 71260; 80048; 80053; 82397; 83735; 83880; 83970; 84443; 85025; 86140; 87449; 93005; 93010; 96361; 96365; 96375; 99223; 99239; 99285; J1650; J1940; J7030

== ENCOUNTER 2016-12-05 06:38 | Emergency (ER) | payer MEDICARE ==
[2016-12-05 07:00] LABS: BASO % 0.2 % (0-6); GRAN % 76.7 % (47-80); HEMATOCRIT 43.9 % (42.0-52.0); HEMOGLOBIN 15.2 gm/dl (14.0-18.0); LYMPH % 13.1 % (16-45); MEAN CELL VOLUME 94.4 fl (81-97); MEAN CORPUSCULAR HEMOGLOBIN 32.7 pg (27-33); MEAN CORPUSCULAR HGB CONC 34.6 g/dl (32-36); MEAN PLATELET VOLUME 8.7 fl (7.4-10.4); PLATELET COUNT 283 K/uL (130-400); RED BLOOD COUNT 4.65 M/uL (4.40-5.70); RED CELL DISTRIBUTION WIDTH 13.7 % (11.5-14.5); WHITE BLOOD COUNT W/O DIFF 11.5 K/uL (4.2-12.2)
[2016-12-05 07:13] LABS: ALB/GLOB RATIO 1.1 (1.1-1.8); ALBUMIN 4.2 gm/dL (3.5-5.0); ANION GAP 11.8 (7-16); BILIRUBIN,TOTAL 0.77 mg/dL (0.2-1.3); CARBON DIOXIDE 31.2 mmol/L (22-30); CREATININE 2.5 mg/dL (0.66-1.25); TOTAL PROTEIN 8.2 gm/dL (6.3-8.2)
--- NOTE | 2016-12-05 07:23 | Emergency Department Record ---
History of Present Illness - General Chief complaint: Weakness Stated complaint: WEAKNESS Time Seen by Provider: 12/05/16 07:08 Source: Patient Mode of Arrival: EMS Limitations: No limitations - History of Present Illness Initial comments: 71 yo male presents to ED with a CC of recent fall and generalized weakness. Patient reports that he was recently admitted for pneumonia and subsequently diagnosed with lung cancer. Patient has not seen an oncologist as of yet. Patient does report decreased appetite associated with weakness symptoms. Patient denies fevers, chills, or cough symptoms since being discharged. MD Complaint: Generalized weakness Onset/Timin -: Week(s) Location: Generalized Severity: Moderate Consistency: Constant Improves with: None Worsens with: Exertion, Movement Associated Symptoms: Nausea/vomiting - Demi Coma Scale Eye Response: (4) Open spontaneously Motor Response: (6) Obeys commands Verbal Response: (5) Oriented Reedy Total: 15 - Related Data Home Medications Medication Instructions Recorded Confirmed Last Taken Aclidinium [place] [Tudorza 400 mcg IH DAILY 11/18/16 11/18/16 Unknown Pressair] Amlodipine Besylate [Norvasc] 10 mg PO DAILY 11/18/16 11/18/16 Unknown Aspirin [Ecotrin] 81 mg PO DAILY 11/18/16 11/18/16 Unknown Atenolol [Tenormin] 50 mg PO DAILY 11/18/16 11/18/16 Unknown Atorvastatin Calcium [Lipitor] 10 mg PO DAILY 11/18/16 11/18/16 Unknown Cholecalciferol (Vitamin D3) 1,000 unit PO DAILY 11/18/16 11/18/16 Unknown [Vitamin D3] Fluticasone Propionate [Flonase] 2 spray EACH NARES DAILY 11/18/16 11/18/16 Unknown Loratadine 10 mg PO DAILY 11/18/16 11/18/16 Unknown Multivit-Min/FA/Lycopene/Lut 1 each PO DAILY 11/18/16 11/18/16 Unknown [Centrum Silver Tablet] Nitroglycerin 0.4 mg SL ASDIR 11/18/16 11/18/16 Unknown Oxycodone HCl/Acetaminophen 1 tab PO Q6H PRN 11/18/16 11/18/16 Unknown [Percocet 10mg/325mg] Saliva Substitution Combo No.9 473 ml MM DAILY 11/18/16 11/18/16 Unknown [Biotene] Tramadol HCl 2 tab PO QHS 11/18/16 11/18/16 Unknown Previous Rx's Medication Instructions Recorded Azithromycin [Zithromax] 500 mg PO DAILY #2 tab 11/20/16 Allergies Allergy/AdvReac Type Severity Reaction Status Date / Time codeine Allergy Unknown HYPERSENSIT Unverified 07/28/14 18:14 IVITY Travel Screening - Travel/Exposure Within Last 30 Days Have you traveled within the last 30 days?: No - Travel Symptoms Symptom Screening: None Review of Systems Constitutional: Reports: Weakness, Weight change. Denies: Chills, Fever, Malaise, Night sweats Eyes: Denies: Eye discharge, Eye pain ENT: Denies: Congestion, Ear pain, Epistaxis Respiratory: Denies: Cough, Dyspnea Cardiovascular: Denies: Chest pain, Dyspnea on exertion Endocrine: Denies: Fatigue, Heat or cold intolerance Gastrointestinal: Denies: Abdominal pain, Nausea, Vomiting Genitourinary: Denies: Hematuria, Incontinence, Retention Musculoskeletal: Reports: Arthralgia (left hip pain). Denies: Back pain, Gout, Joint swelling Skin: Denies: Bruising, Change in color Neurological: Reports: Weakness. Denies: Abnormal gait, Confusion, Headache, Seizure Psychiatric: Denies: Anxiety Hematological/Lymphatic: Denies: Anemia, Blood Clots Past Medical History - SOCIAL HISTORY Smoking Status: Former smoker - RESPIRATORY Hx Respiratory Disorders: Yes Hx Pneumonia: Yes (11/17/2016) - CARDIOVASCULAR Hx Cardio Disorders: Yes Hx Cardiac Cath: Yes Hx Heart Attack: Yes Hx Hypertension: Yes Hx Vascular Disease: Yes Hx Coronary Stent: Yes (years ago) Comment:: aortic aneurysm repair. 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) Hx Weakness: Yes (generalized) - GI Hx GI Disorders: Yes Hx Abdominal Pain: Yes Hx Liver Disease: Yes (fatty liver disease) Hx Wt Loss/Wt Gain: Yes (losing weight unknown etiology) - Hx Genitourinary Disorders: Yes Hx Bladder Problem: Yes (frequent) - ENDOCRINE Hx Endocrine Disorders: No Hx Diabetes: No Hx Thyroid Disease: No - MUSCULOSKELETAL Hx Musculoskeletal Disorders: Yes Hx Arthritis: Yes Hx Back Injury: Yes - PSYCH Hx Psych Problems: No - HEMATOLOGY/ONCOLOGY Hx Hematology/Oncology Disorders: Yes Hx Cancer: Yes (Lung-new dx 11/2016) Hx Chemotherapy: No Hx Radiation Therapy: No Hx Blood Transfusions: No Family Medical History Any Significant Family History?: Yes Hx Heart Disease: Father Physical Exam - General General Appearance: Alert, Oriented x3, Cooperative, Mild distress, Other ( cachetic appearing on examination) Limitations: No limitations - Head Head exam: Atraumatic, Normocephalic, Normal inspection Head exam detail: negative: Abrasion, Contusion, Waldron's sign, General tenderness, Hematoma, Laceration - Eye Eye exam: Normal appearance. negative: Conjunctival injection, Periorbital swelling, Periorbital tenderness, Scleral icterus - ENT ENT exam: Mucous membranes dry Ear exam: negative: Auricular hematoma, Auricular trauma Nasal Exam: negative: Active bleeding, Discharge, Dried blood, Foreign body Mouth exam: negative: Drooling, Laceration, Muffled voice, Tongue elevation - Neck Neck exam: Normal inspection. negative: Meningismus, Tenderness - Respiratory Respiratory exam: Normal lung sounds bilaterally. negative: Rales, Respiratory distress, Rhonchi, Stridor - Cardiovascular Cardiovascular Exam: Regular rate, Normal rhythm, Normal heart sounds - GI/Abdominal GI/Abdominal exam: Soft. negative: Rebound, Rigid, Tenderness - Rectal Rectal exam: Deferred - exam: Deferred - Extremities Extremities exam: Tenderness (TTP along the left proximal hip and pelvis on examination). negative: Calf tenderness, Pedal edema - Back Back exam: Denies: CVA tenderness (R), CVA tenderness (L) - Neurological Neurological exam: Alert, Normal gait, Oriented X3 - Psychiatric Psychiatric exam: Normal affect, Normal mood - Skin Skin exam: Normal color. negative: Abrasion Type of lesion: negative: abrasion Course Vital Signs 12/05/16 06:40 Temperature 97.5 F L Pulse Rate 73 Respiratory 16 Rate Blood Pressure 201/117 Pulse Ox 97 - Reevaluation(s) Reevaluation #1: 12/05/16 07:33 Previous radiographs of the left hip/femur reviewed, c/w a fracture displacement of the left anterior/inferior iliac spine. Labs reviewed today, Ca+ elevated compared with previous (13-16.4), BUN/ Creatinine have increased from 1.2/20 on 11/20/16 to 2.5/44 today. Discharge summary reviewed, unknown follow-up for oncology. Will initiate transfer for further evaluation. Reevaluation #2: 12/05/16 08:08 Case was discussed with Dr. Workman, will admit for further evaluation. Medical Decision Making - Lab Data Result diagrams: 12/05/16 06:50 12/05/16 06:50 Lab Results 12/05/16 Range/Units 06:50 WBC 11.5 (4.2-12.2) K/uL RBC 4.65 (4.40-5.70) M/uL Hgb 15.2 (14.0-18.0) gm/dl Hct 43.9 (42.0-52.0) % MCV 94.4 (81-97) fl MCH 32.7 (27-33) pg MCHC 34.6 (32-36) g/dl RDW 13.7 (11.5-14.5) % Plt Count 283 (130-400) K/uL MPV 8.7 (7.4-10.4) fl Gran % 76.7 (47-80) % Lymphocytes % 13.1 L (16-45) % Monocytes % 9.0 (0-9) % Eosinophils % 1.0 (0-6) % Basophils % 0.2 (0-6) % Disposition Disposition: Transfer Clinical Impression: Hypercalcemia, Generalized weakness, Lesion of lung Acute kidney failure Qualifiers: Acute renal failure type: unspecified Qualified Code(s): N17.9 - Acute kidney failure, unspecified Pathologic pelvic fracture Qualifiers: Encounter type: subsequent encounter Pathology associated with fracture: neoplastic disease Fracture healing: with routine healing Qualified Code(s): M84.550D - Pathological fracture in neoplastic disease, pelvis, subsequent encounter for fracture with routine healing Transfer To: [facility] Reason For Transfer: Oncologic consultation Accepting Physician: Jacinta Time Discussed w/Accepting Physician: 08:08 Condition: (2) Stable Forms: Patient Portal Access Time of Disposition: 08:09
[2016-12-05] MEDS ORDERED: 0.9 % SODIUM CHLORIDE 1000ML 1,000 ML IV SCH (07:45)
[2016-12-05] MEDS ORDERED: MORPHINE SULFATE 5 MG/ML PFS IVP ONE (08:36)
[2016-12-05] MEDS ORDERED: ONDANSETRON HCL IV 4 MG/2 ML VIAL IVP ONE (11:15)
== END 2016-12-05 12:30 | disposition short-term general hospital (02) ==
LOC: ER 06:38
DX: E83.52 Hypercalcemia (principal); R53.1 Weakness; N17.9 Acute kidney failure, unspecified; R11.2 Nausea with vomiting, unspecified; C34.90 Malignant neoplasm of unspecified part of unspecified bronchus or lung; Z87.891 Personal history of nicotine dependence; M84.550D Pathological fracture in neoplastic disease, pelvis, subsequent encounter for fracture with routine healing; I25.2 Old myocardial infarction
CPT/HCPCS: 99285 ×2; 96360; 96374; 96375; 85025; 80053; J2405; J2270; J7030